=== PATIENT | male | born 1990 | race Caucasian/White ===

== ENCOUNTER 2017-02-06 12:07 | Emergency (ER) | payer OTHER ==
[2017-02-06] MEDS ORDERED: ONDANSETRON DISINTEGRATING 4 MG TAB PO ONE (12:24)
[2017-02-06 13:18] LABS: PLATELET COUNT 199 10^3/uL (150-400)
[2017-02-06] MEDS ORDERED: KETOROLAC 30 MG/1 ML SDV IVP ONE (13:18)
--- NOTE | 2017-02-06 13:21 | EDPHY ---
H & P Stated Complaint: abd pain, right flank pain Time Seen by Provider: 02/06/17 13:15 HPI/ROS: CHIEF COMPLAINT: Acute right flank and abdominal pain HISTORY OF PRESENT ILLNESS: The patient presents the ED with complaints of acute flank and abdominal pain which began approximately 2 hr prior to arrival. The patient reports 1 episode of nausea and vomiting. The patient denies any antecedent upper respiratory infection, history of fall, trauma or dysuria. The pain does have a history of ureterolithiasis x1. The patient did pass that stone without complication. The patient has a history of ulcerative colitis and takes no medications for the condition. The patient currently rates his pain as an 8/10. It does not radiate. REVIEW OF SYSTEMS: A comprehensive 10 point review of systems is otherwise negative aside from elements mentioned in the history of present illness. Source: Patient Exam Limitations: No limitations - Personal History Current Tetanus/Diphtheria Vaccine: Yes Current Tetanus Diphtheria and Acellular Pertussis (TDAP): Yes - Medical/Surgical History Hx Asthma: No Hx Chronic Respiratory Disease: No Hx Diabetes: No Hx Cardiac Disease: No Hx Renal Disease: No Hx Cirrhosis: No Hx Alcoholism: No Hx HIV/AIDS: No Hx Splenectomy or Spleen Trauma: No Other PMH: PMH: ulcerative colitis. - Social History Smoking Status: Never smoked - Physical Exam Exam: General Appearance: Alert, mild discomfort secondary to pain Eyes: Pupils equal and round no pallor or injection ENT, Mouth: Mucous membranes moist Respiratory: There are no retractions, lungs are clear to auscultation Cardiovascular: Regular rate and rhythm Gastrointestinal: Minimal tenderness to palpation right mid quadrant, right CVA tenderness present Neurological: A&O, normal motor function, normal sensory exam, normal cranial nerves Skin: Warm and dry, no rashes Musculoskeletal: Neck is supple nontender Extremities: symmetrical, full range of motion Constitutional: Initial Vital Signs Temperature (C) 36.3 C 02/06/17 12:20 Heart Rate 72 02/06/17 12:20 Respiratory Rate 18 02/06/17 12:20 Blood Pressure 126/89 H 02/06/17 12:20 O2 Sat (%) 100 02/06/17 12:20 O2 Delivery Mode Room Air Allergies/Adverse Reactions: No Known Allergies Allergy (Unverified 02/06/17 12:23) Home Medications: Medication Instructions Recorded Ondansetron Odt [Zofran Odt] 4 mg PO Q4PRN PRN #20 tab 02/06/17 Tamsulosin HCl [Flomax] 0.4 mg PO DAILY PRN #5 cap 02/06/17 oxyCODONE/APAP 5/325 [Percocet 1 - 2 tab PO Q6-8PRN PRN #20 tab 02/06/17 5/325 (RX)] Medical Decision Making - Diagnostics Imaging Results: Imaging Impressions Abdomen X-Ray 02/06/17 13:21 Impression: Probable left nephrolithiasis without definite right nephrolithiasis. Abdomen/Pelvis CT 02/06/17 14:55 Impression: The patient is about to pass a tiny distal right ureteral calculus. Results called and discussed with Fred Naylor, at 02/06/2017 15:22 Attention: This CT examination is specifically designed to evaluate patients who are clinically suspected of having acute obstructive uropathy. This examination does not use radiographic contrast, and as such, provides only a limited evaluation of the abdomen, pelvis and retroperitoneum. If there is further clinical suspicion for pathological conditions other than obstructive uropathy, a complete CT evaluation of the abdomen and pelvis utilizing intravenous, oral, and rectal contrast should be considered. General information for patients regarding this examination can be found at [email or web address]. If you have questions or comments about this report, please contact me at (hospital) or [phone] (cell). ED Course/Re-evaluation: The patient had an IV established. He dense the ED with acute right flank pain. He does have a prior history of ureterolithiasis. The patient does have hematuria. He has right flank pain consistent with likely recurrent ureterolithiasis. The patient had an IV established. He received 30 mg of IV Toradol. He received 0.4 mg of Flomax. KUB of the abdomen pelvis demonstrated no convincing ureterolithiasis. I re-evaluated the patient at 3:00 p.m.. He has continued to have mild ongoing pain. Given the absence of an obvious ureteral stone on KUB a CT scan of the abdomen pelvis was obtained which demonstrates a 2 mm distal right ureteral stone. The patient was re-evaluated at 3:30 p.m.. He is informed of the diagnosis of a very small distal ureteral stone and a high likelihood that it should pass. He will be discharged home with a prescription for Flomax, Zofran and Percocet. He is advised to use NSAIDs as needed for pain. Differential Diagnosis: Differential diagnosis considered includes ureterolithiasis, pyelonephritis, nephrolithiasis, myofascial strain, appendicitis - Data Points Laboratory Results: Laboratory Results 02/06/17 13:10 02/06/17 13:10 02/06/17 02/06/17 02/06/17 13:10 13:10 13:03 WBC 9.68 10^3/uL H 10^3/uL (3.80-9.50) RBC 4.81 10^6/uL 10^6/uL (4.40-6.38) Hgb 15.9 g/dL g/dL (13.7-17.5) Hct 45.3 % % (40.0-51.0) MCV 94.2 fL fL (81.5-99.8) MCH 33.1 pg pg (27.9-34.1) MCHC 35.1 g/dL g/dL (32.4-36.7) RDW 11.9 % % (11.5-15.2) Plt Count 199 10^3/uL 10^3/uL (150-400) MPV 10.7 fL fL (8.7-11.7) Neut % (Auto) 83.9 % H % (39.3-74.2) Lymph % (Auto) 10.6 % L % (15.0-45.0) [place] % (Auto) 4.5 % % (4.5-13.0) Eos % (Auto) 0.3 % L % (0.6-7.6) Baso % (Auto) 0.4 % % (0.3-1.7) Nucleat RBC Rel Count 0.0 % % (0.0-0.2) Absolute Neuts (auto) 8.11 10^3/uL H 10^3/uL (1.70-6.50) Absolute Lymphs (auto) 1.03 10^3/uL 10^3/uL (1.00-3.00) Absolute Monos (auto) 0.44 10^3/uL 10^3/uL (0.30-0.80) Absolute Eos (auto) 0.03 10^3/uL 10^3/uL (0.03-0.40) Absolute Basos (auto) 0.04 10^3/uL 10^3/uL (0.02-0.10) Absolute Nucleated RBC 0.00 10^3/uL 10^3/uL (0-0.01) Immature Gran % 0.3 % % (0.0-1.1) Immature Gran # 0.03 10^3/uL 10^3/uL (0.00-0.10) Sodium 142 mEq/L mEq/L (134-144) Potassium 4.2 mEq/L mEq/L (3.5-5.2) Chloride 108 mEq/L mEq/L (97-110) Carbon Dioxide 20 mEq/l L mEq/l (22-31) Anion Gap 14 mEq/L mEq/L (8-16) BUN 14 mg/dL mg/dL (7-23) Creatinine 1.2 mg/dL mg/dL (0.7-1.3) Estimated GFR > 60 Glucose 106 mg/dL H mg/dL (70-100) Calcium 10.0 mg/dL mg/dL (8.5-10.4) Urine Color YELLOW Urine Appearance HAZY Urine pH 5.0 (5.0-7.5) Ur Specific [place] 1.025 (1.002-1.030) Urine Protein 1+ H (NEGATIVE) Urine Ketones NEGATIVE (NEGATIVE) Urine Blood 2+ H (NEGATIVE) Urine Nitrate NEGATIVE (NEGATIVE) Urine Bilirubin NEGATIVE (NEGATIVE) Urine Urobilinogen NEGATIVE EU EU (0.2-1.0) Ur Leukocyte Esterase NEGATIVE (NEGATIVE) Urine RBC 25-50 /hpf H /hpf (0-3) Urine WBC 5-10 /hpf H /hpf (0-3) Ur Epithelial Cells NONE SEEN /lpf /lpf (NONE-1+) Urine Mucus 2+ /lpf H /lpf (NONE-1+) Urine Glucose NEGATIVE (NEGATIVE) Medications Given: Discontinued Medications Sodium Chloride (Ns) 1,000 mls @ 0 mls/hr IV ONCE ONE PRN Reason: Wide Open Stop: 02/06/17 13:27 Last Admin: 02/06/17 13:27 Dose: 1,000 mls Ketorolac Tromethamine (Toradol) 30 mg IVP EDNOW ONE Stop: 02/06/17 13:19 Last Admin: 02/06/17 13:26 Dose: 30 mg Ondansetron HCl (Zofran Odt) 4 mg PO EDNOW ONE Stop: 02/06/17 12:25 Last Admin: 02/06/17 12:26 Dose: 4 mg Tamsulosin HCl (Flomax) 0.4 mg PO EDNOW ONE Stop: 02/06/17 13:50 Last Admin: 02/06/17 14:10 Dose: 0.4 mg Departure - Departure Disposition: Home, Routine, Self-Care Clinical Impression: Kidney stone on right side Condition: Good Instructions: Renal Colic (ED) Additional Instructions: 1. Take Ibuprofen or Motrin 600 mg by mouth three times a day. 2. Percocet as needed for severe pain 3. Flomax as directed 4. Zofran as needed for nausea 5. Strain urine as directed 6. Return to the Emergency Department for intractable pain, fever or vomiting. 7. Followup with the urologist you have been referred to for unimproved symptoms. Referrals: Panda Simpson MD [Medical Doctor] - As per Instructions Prescriptions: Ondansetron Odt [Zofran Odt] 4 mg PO Q4PRN PRN #20 tab PRN Reason: For Nausea oxyCODONE/APAP 5/325 [Percocet 5/325 (RX)] 1 - 2 tab PO Q6-8PRN PRN #20 tab PRN Reason: for pain Tamsulosin HCl [Flomax] 0.4 mg PO DAILY PRN #5 cap PRN Reason: for pain
[2017-02-06] MEDS ORDERED: NS 1,000 ML IV ONE (13:26)
[2017-02-06] MEDS ORDERED: TAMSULOSIN HCL 0.4 MG CAP PO ONE (13:49)
[2017-02-06 14:59] VITALS: RESP 18
[2017-02-06 15:47] VITALS: BP 117/70; PULSE 70; TEMP 98.8; O2SAT 90
== END 2017-02-06 15:47 | disposition home or self-care (01) ==
DX: N20.0 Calculus of kidney (principal); R11.2 Nausea with vomiting, unspecified
CPT/HCPCS: 96374; J1885